=== PATIENT | female | born 1940 | race Caucasian/White ===

== ENCOUNTER → 2017-01-26 | Outpatient (CLI) | payer MEDICARE, OTHER | END | disposition home or self-care (01) | LOC: PCVCCLINIC 11:37 | PROVIDERS: ATTEND Internal Medicine Cardiovascular Disease | DX: I48.91 Unspecified atrial fibrillation (principal); I25.10 Atherosclerotic heart disease of native coronary artery without angina pectoris; I10 Essential (primary) hypertension; E78.00 Pure hypercholesterolemia, unspecified | CPT/HCPCS: 93005; G0463 ==

== ENCOUNTER → 2017-07-27 | Outpatient (CLI) | payer MEDICARE, OTHER | END | disposition home or self-care (01) | LOC: PCVCCLINIC 12:46 | PROVIDERS: ATTEND Internal Medicine Cardiovascular Disease | DX: Z51.81 Encounter for therapeutic drug level monitoring (principal); I48.0 Paroxysmal atrial fibrillation; I25.10 Atherosclerotic heart disease of native coronary artery without angina pectoris; I11.0 Hypertensive heart disease with heart failure; I50.9 Heart failure, unspecified; E78.00 Pure hypercholesterolemia, unspecified; R60.9 Edema, unspecified; Z88.2 Allergy status to sulfonamides; Z79.82 Long term (current) use of aspirin; Z79.01 Long term (current) use of anticoagulants; Z79.899 Other long term (current) drug therapy; Z95.1 Presence of aortocoronary bypass graft; Z87.891 Personal history of nicotine dependence | CPT/HCPCS: 36415; 85610; 93005; G0463 ==

== ENCOUNTER → 2017-08-24 | Outpatient (CLI) | payer MEDICARE, OTHER ==
--- NOTE | 2017-08-24 11:35 | PCVCIMAG ---
APPROVED REPORT Study performed: 08/24/2017 10:12:18 EXAM: Comprehensive 2D, Doppler, and color-flow Echocardiogram Patient Location: Echo lab Room #: 3Status: routine BSA: 1.98 HR: 50 bpmBP: 150/78 mmHg Rhythm: Atrial Fibrillation Other Information Study Quality: Technically Difficult Risk Factors: Cardiac Risk Factors: HTN, Hyperlipidemia Indications Atrial Fibrillation CAD S/P CABG 2D Dimensions LVEF(%): 65.32 (>50%) IVSd: 8.20 (7-11mm) LVDd: 51.91 mm PWd: 9.61 (7-11mm)Ascending Ao: 25.04 (22-36mm) LVDs: 33.18 (25-40mm) Left Atrium: 40.48 (27-40mm) Aortic Root: 21.19 mm LV Single Plane 4CH: 54.32 % LV Single Plane 2CH: 65.87 %Seaman's LVEF: 60.10 % Biplane EF: 61.8 % Volumes Left Atrial Volume (Systole) Single Plane 4CH: 87.50 mLSingle Plane 2CH: 94.46 mL Biplane LA Volume: 96.00 mLLA ESV Index: 48.00 mL/m2 Aortic Valve AoV Peak Cristian.: 1.38 m/s AO Peak Gr.: 7.80 mmHgLVOT Max P.76 mmHg LVOT Max V: 1.30 m/s Mitral Valve E/A Ratio: 1.0 MV Decel. Time: 213.79 ms MV E Max Cristian.: 0.93 m/s MV A Cristian.: 0.96 m/s MV PHT: 62.00 ms IVRT: 121.11 ms TDI E/Lateral E': 18.60E/Medial E': 15.50 Medial E' Cristian.: 0.06 m/s Lateral E' Cristian.: 0.05 m/s Pulmonary Valve PV Peak Cristian.: 1.03 m/sPV Peak Gr.: 4.23 mmHg Pulmonary Vein P Vein S: 0.47 m/sP Vein A: 0.23 m/s P Vein D: 0.46 m/sP Vein A Dur.: 100.3 msec P Vein S/D Ratio: 1.02 Tricuspid Valve TR Peak Cristian.: 2.84 m/s TR Peak Gr.: 32.24 mmHg TV Vmax: 0.51 m/sPA Pressure: 39.00 mmHg Left Ventricle The left ventricle is normal size. There is normal LV segmental wall motion. There is normal left ventricular wall thickness. Left ventricular systolic function is normal. The left ventricular ejection fraction is within the normal range. LVEF is 60-65%. This study is not technically sufficient to allow evaluation of the LV diastolic function due to atrial fibrillation. Right Ventricle The right ventricle is normal size. The right ventricular systolic function is normal. Atria Left atrium is moderately dilated. The right atrium size is normal. Aortic Valve The aortic valve is not well visualized. Aortic valve leaflets are sclerotic but open well. Trace aortic regurgitation. There is no aortic valvular stenosis. Mitral Valve The mitral valve is normal in structure. Mild to moderate mitral regurgitation. No evidence of mitral valve stenosis. Tricuspid Valve The tricuspid valve is normal in structure. Mild to moderate tricuspid regurgitation with a PA pressure of 39mmHg. Pulmonic Valve The pulmonary valve is normal in structure. There is no pulmonic valvular regurgitation. Great Vessels The aortic root is normal in size. The ascending aorta is normal in size. IVC is normal in size and collapses with >50% inspiration Pericardium There is no pericardial effusion. There is no pleural effusion. <Conclusion> The left ventricle is normal size. Left ventricular systolic function is normal. The right ventricle is normal size. Left atrium is moderately dilated. Aortic valve leaflets are sclerotic but open well. Mild to moderate mitral regurgitation. Mild to moderate tricuspid regurgitation with a PA pressure of 39mmHg.
== END | disposition home or self-care (01) ==
LOC: PCVCIMAG 10:12
PROVIDERS: ATTEND Internal Medicine Cardiovascular Disease
DX: I08.3 Combined rheumatic disorders of mitral, aortic and tricuspid valves (principal); I25.10 Atherosclerotic heart disease of native coronary artery without angina pectoris; I48.0 Paroxysmal atrial fibrillation; I10 Essential (primary) hypertension; R60.9 Edema, unspecified; I65.23 Occlusion and stenosis of bilateral carotid arteries; G47.33 Obstructive sleep apnea (adult) (pediatric); Z95.1 Presence of aortocoronary bypass graft; Z88.2 Allergy status to sulfonamides; Z88.8 Allergy status to other drugs, medicaments and biological substances; Z79.82 Long term (current) use of aspirin; Z79.01 Long term (current) use of anticoagulants; Z79.899 Other long term (current) drug therapy; Z87.891 Personal history of nicotine dependence
CPT/HCPCS: 93005; 93306; G0463

== ENCOUNTER → 2017-12-03 | Outpatient (CLI) | payer MEDICARE, OTHER | END | disposition home or self-care (01) | LOC: PCVCCLINIC 14:46 | DX: Z51.81 Encounter for therapeutic drug level monitoring (principal); I48.0 Paroxysmal atrial fibrillation; I25.10 Atherosclerotic heart disease of native coronary artery without angina pectoris; I11.0 Hypertensive heart disease with heart failure; I50.9 Heart failure, unspecified; E78.5 Hyperlipidemia, unspecified; E78.00 Pure hypercholesterolemia, unspecified; Z79.01 Long term (current) use of anticoagulants | CPT/HCPCS: 85610 ==

== ENCOUNTER → 2017-12-29 | Outpatient (CLI) | payer MEDICARE, OTHER | END | disposition home or self-care (01) | LOC: PCVCCLINIC 13:46 | DX: I25.10 Atherosclerotic heart disease of native coronary artery without angina pectoris (principal); I48.0 Paroxysmal atrial fibrillation; I10 Essential (primary) hypertension; R60.9 Edema, unspecified; R94.31 Abnormal electrocardiogram [ECG] [EKG]; Z79.82 Long term (current) use of aspirin; Z79.899 Other long term (current) drug therapy; Z79.01 Long term (current) use of anticoagulants; Z87.891 Personal history of nicotine dependence | CPT/HCPCS: 36415; 93005; G0463 ==

== ENCOUNTER → 2018-06-28 | Outpatient (CLI) | payer MEDICARE, OTHER ==
--- NOTE | 2018-06-28 13:31 | PCVCIMAG ---
APPROVED REPORT Study performed: 06/28/2018 10:48:23 EXAM: Comprehensive 2D, Doppler, and color-flow Echocardiogram Patient Location: Echo lab Room #: 1Status: routine BSA: 1.92 BP: 126/72 mmHg Rhythm: NSR Other Information Study Quality: Fair Risk Factors: Cardiac Risk Factors: HTN, Hyperlipidemia Indications Atrial Fibrillation Non STEMI CAD S/P CABG, PAROXYSMAL A FIB 2D Dimensions LVEF(%): 65.13 (>50%) IVSd: 12.18 (7-11mm)LVOT Diam: 22.61 (18-24mm) LVDd: 45.73 mm PWd: 11.25 (7-11mm) LVDs: 29.46 (25-40mm) Left Atrium: 41.22 (27-40mm) Aortic Root: 23.56 mm LV Single Plane 4CH: 54.02 % LV Single Plane 2CH: 59.45 %Seaman's LVEF: 56.74 % Biplane EF: 55.4 % Volumes Left Atrial Volume (Systole) Single Plane 4CH: 72.09 mLSingle Plane 2CH: 108.27 mL Biplane LA Volume: 93.00 mLLA ESV Index: 48.00 mL/m2 Aortic Valve AoV Peak Cristian.: 1.84 m/s AO Peak Gr.: 13.52 mmHgLVOT Max P.95 mmHg LVOT Max V: 1.32 m/s SUSIE Vmax: 2.88 cm2 Mitral Valve E/A Ratio: 1.1 MV Decel. Time: 191.34 ms MV E Max Cristian.: 0.83 m/s MV A Cristian.: 0.77 m/s IVRT: 96.89 ms TDI E/Lateral E': 13.83E/Medial E': 13.83 Medial E' Cristian.: 0.06 m/s Lateral E' Cristian.: 0.06 m/s Pulmonary Valve PV Peak Cristian.: 1.08 m/sPV Peak Gr.: 4.65 mmHg Tricuspid Valve TR Peak Cristian.: 2.95 m/s TR Peak Gr.: 34.84 mmHg TV Vmax: 0.61 m/sPA Pressure: 42.00 mmHg Left Ventricle The left ventricle is normal size. There is normal LV segmental wall motion. Mild concentric left ventricular hypertrophy. Mild basal septal hypertrophy is present. Left ventricular systolic function is normal. The left ventricular ejection fraction is within the normal range. LVEF is 55-60%. Right Ventricle The right ventricle is normal size. The right ventricular systolic function is normal. Atria Left atrium is moderately dilated. The right atrium size is normal. Aortic Valve Aortic valve is not well visualized. Aortic valve is probably trileaflet. Mild aortic valve sclerosis. No aortic regurgitation is present. There is no aortic valvular stenosis. Mitral Valve The mitral valve is normal in structure. Mild to moderate mitral regurgitation. No evidence of mitral valve stenosis. Tricuspid Valve The tricuspid valve is normal in structure. Mild tricuspid regurgitation with a PA pressure of 42 mmHg. Pulmonic Valve The pulmonary valve is normal in structure. There is no pulmonic valvular regurgitation. Great Vessels The aortic root is normal in size. Ascending aorta is not well visualized. Aortic arch is not well visualized. IVC is normal in size and collapses with >50% inspiration Pericardium There is no pericardial effusion. There is no pleural effusion. <Conclusion> The left ventricle is normal size. Mild concentric left ventricular hypertrophy. Left ventricular systolic function is normal. The right ventricle is normal size. Left atrium is moderately dilated. Mild aortic valve sclerosis. There is no aortic valvular stenosis. Mild to moderate mitral regurgitation. Mild tricuspid regurgitation with a PA pressure of 42 mmHg.
== END | disposition home or self-care (01) ==
LOC: PCVCIMAG 10:39
PROVIDERS: ATTEND Internal Medicine Cardiovascular Disease
DX: I25.10 Atherosclerotic heart disease of native coronary artery without angina pectoris (principal); I08.3 Combined rheumatic disorders of mitral, aortic and tricuspid valves; I48.0 Paroxysmal atrial fibrillation; I10 Essential (primary) hypertension; R60.9 Edema, unspecified; Z79.82 Long term (current) use of aspirin; Z87.891 Personal history of nicotine dependence
CPT/HCPCS: 93005; 93306; G0463